=== PATIENT | male | born 1935 | race Caucasian/White ===

== ENCOUNTER → 2021-10-06 09:28 | Outpatient (CLI) | payer MEDICARE, SELFPAY ==
[2021-10-07 06:46] LABS: Covid-19 Nasal PCR Sendout Lex NOT DETECTED
== END ==
PROVIDERS: Visit Provider Nurse Practitioner
DX: Z20.822 Contact with and (suspected) exposure to COVID-19 (principal)
CPT/HCPCS: C9803; U0004; U0005

== ENCOUNTER → 2022-10-12 15:52 | Outpatient (CLI) | payer MEDICARE, SELFPAY ==
--- NOTE | 2022-10-12 15:58 | XR_ITS ---
FINAL REPORT CLINICAL HISTORY: R HIP PAIN FINDINGS: 2 views of the right hip and an AP pelvis were obtained. There is no acute fracture or dislocation. There is mild narrowing of the hip joint spaces bilaterally. There is mild osteophyte formation at the acetabular margins. There are no soft tissue abnormalities. IMPRESSION: Mild osteoarthritis bilaterally. Reviewed, Interpreted and Dictated by Isidoro Gutierrez MD Transcribed by Charlie Gonsalez Authenticated and [facility]
[2022-10-12 17:33] LABS: Basophils % 0.8 % (0.1-2.0); Eosinophils # 0.1 K/mm3 (0.0-0.4); Hematocrit 39.9 % (42.0-52.0); Hemoglobin 13.7 g/dL (14.1-18.0); Lymphocytes # 0.9 K/mm3 (0.7-4.5); Lymphocytes % 15.7 % (10-50); Mean Corpuscular HGB Conc 34.4 g/dL (31.8-35.4); Mean Corpuscular Volume 90.3 fl (80-94); Mean Platelet Volume 9.8 fl (7.4-10.4); Monocytes # 0.3 K/mm3 (0.1-1.0); Monocytes % 4.9 % (1.7-9.3); Neutrophils # 4.3 K/mm3 (1.8-7.8); Neutrophils % 77.6 % (37.0-80.0); Platelet Count 98 K/mm3 (142-424); Red Blood Count 4.41 M/mm3 (4.60-6.20); Red Cell Distribution Width 15.7 % (11.5-17.5); White Blood Count 5.6 K/mm3 (4.8-10.8)
[2022-10-12 17:59] LABS: Alanine Aminotransferase 21 U/L (12-78); Albumin Level 3.2 g/dl (3.5-5.0); Albumin/Globulin Ratio 1.2 (1.1-1.8); Alkaline Phosphatase 119 U/L (38-126); Anion Gap 10.1 mEq/L (5-15); Aspartate Amino Transferase 48 U/L (17-59); Bilirubin,Total 1.5 mg/dl (0.2-1.3); Blood Urea Nitrogen 19 mg/dl (9-20); Calcium 8.1 mg/dl (8.4-10.2); Carbon Dioxide 26 mmol/L (22.0-30.0); Chloride 99 mmol/L (98-107); Chol/HDL Ratio 3.7 (1-3.5); Cholesterol 159 mg/dl (140-200); Estimated Glomerular Filt Rate 38 ml/min (>60); GFR (African American) 46 ML/MIN (>60); Globulin 2.6 g/dL (1.3-3.2); HDL Cholesterol 43 mg/dl (40-60); Potassium 4.1 mmoL/L (3.5-5.1); Sodium 131 mmol/L (136-145); Total Protein,Serum 5.8 g/dl (6.3-8.2); Triglycerides 276 mg/dl (30-150); VLDL Cholesterol 55 mg/dL (0-40)
[2022-10-12 18:08] LABS: Erythrocyte Sedimentation Rate 13 mm/hr (0-20)
[2022-10-12 18:10] LABS: Direct LDL Cholesterol 79.38 mg/dL (100-129)
[2022-10-12 18:16] LABS: Glucose 578 mg/dl (74-100)
[2022-10-12 18:29] LABS: Thyroid Stimulating Hormone 0.82 uIU/mL (0.465-4.68)
[2022-10-12 19:05] LABS: Vitamin B12 705 pg/mL (239-931)
[2022-10-12 19:06] LABS: Folate 9.22 ng/mL
[2022-10-14 14:21] LABS: Rapid Plasma Reagin Ab Titer Non Reactive (NonRea<1:1)
== END ==
PROVIDERS: PCP Internal Medicine; Visit Provider Internal Medicine
DX: M25.551 Pain in right hip (principal); R41.3 Other amnesia; R73.9 Hyperglycemia, unspecified; I10 Essential (primary) hypertension; R25.1 Tremor, unspecified
CPT/HCPCS: 73502; 80053; 80061; 82607; 82746; 83036; 84443; 85025; 85651; 86593

== ENCOUNTER → 2022-10-19 07:19 | Outpatient (CLI) | payer MEDICARE, SELFPAY ==
--- NOTE | 2022-10-19 07:23 | CT_ITS ---
FINAL REPORT TECHNIQUE: Thin section axial images were obtained from skull base to vertex without contrast. Exam was performed using dose reduction technique. CLINICAL HISTORY: MEMORY LOSS,R/O STROKE FINDINGS: There is no mass effect or midline shift. There is no hydrocephalus. There is no intracranial hemorrhage. The posterior fossa is without acute abnormality. The basilar cisterns are preserved. There is near complete opacification of the right mastoid air cells consistent with mastoiditis. The soft tissues are otherwise without acute abnormality. No acute osseous abnormality is identified. IMPRESSION: No acute intracranial abnormality. Right mastoiditis. Reviewed, Interpreted and Dictated by Carito Olmos MD Transcribed by Deepti Costello Authenticated and [facility]
== END ==
PROVIDERS: PCP Internal Medicine; Visit Provider Internal Medicine
DX: R41.3 Other amnesia (principal)
CPT/HCPCS: 70450

== ENCOUNTER → 2022-10-20 11:38 | Outpatient (CLI) | payer MEDICARE, SELFPAY ==
[2022-10-20 15:20] LABS: Chloride 104 mmol/L (98-107); Sodium 138 mmol/L (136-145)
[2022-10-20 15:21] LABS: Potassium 3.8 mmoL/L (3.5-5.1)
[2022-10-20 15:23] LABS: Blood Urea Nitrogen 15 mg/dl (9-20); Estimated Glomerular Filt Rate 48 ml/min (>60); GFR (African American) 58 ML/MIN (>60)
[2022-10-20 15:24] LABS: Anion Gap 8.8 mEq/L (5-15); Calcium 7.9 mg/dl (8.4-10.2); Carbon Dioxide 29 mmol/L (22.0-30.0); Glucose 270 mg/dl (74-100)
== END ==
PROVIDERS: PCP Internal Medicine; Visit Provider Internal Medicine
DX: E11.65 Type 2 diabetes mellitus with hyperglycemia (principal); I10 Essential (primary) hypertension; R41.3 Other amnesia
CPT/HCPCS: 80048

== ENCOUNTER → 2022-11-17 12:50 | Outpatient (CLI) | payer MEDICARE, SELFPAY ==
[2022-11-17 17:34] LABS: Chloride 103 mmol/L (98-107); Sodium 138 mmol/L (136-145)
[2022-11-17 17:37] LABS: Blood Urea Nitrogen 19 mg/dl (9-20); Carbon Dioxide 28 mmol/L (22.0-30.0); Estimated Glomerular Filt Rate 41 ml/min (>60); GFR (African American) 50 ML/MIN (>60)
[2022-11-17 17:38] LABS: Calcium 8.6 mg/dl (8.4-10.2); Glucose 140 mg/dl (74-100)
== END ==
PROVIDERS: PCP Internal Medicine; Visit Provider Internal Medicine
DX: E11.65 Type 2 diabetes mellitus with hyperglycemia (principal); I10 Essential (primary) hypertension
CPT/HCPCS: 80048

== ENCOUNTER → 2023-05-04 11:00 | Outpatient (CLI) | payer MEDICARE, SELFPAY ==
[2023-05-05 10:56] LABS: Alanine Aminotransferase 24 U/L (12-78); Albumin Level 2.9 g/dl (3.5-5.0); Alkaline Phosphatase 158 U/L (38-126); Anion Gap 13.9 mEq/L (5-15); Aspartate Amino Transferase 54 U/L (17-59); Bilirubin,Total 1.3 mg/dl (0.2-1.3); Blood Urea Nitrogen 21 mg/dl (9-20); Calcium 8.7 mg/dl (8.4-10.2); Carbon Dioxide 26 mmol/L (22.0-30.0); Chloride 107 mmol/L (98-107); Chol/HDL Ratio 2.1 (1-3.5); Cholesterol 150 mg/dl (140-200); Estimated Glomerular Filt Rate 36 ml/min (>60); GFR (African American) 44 ML/MIN (>60); Globulin 2.8 g/dL (1.3-3.2); Glucose 133 mg/dl (74-100); HDL Cholesterol 72 mg/dl (40-60); Potassium 4.9 mmoL/L (3.5-5.1); Sodium 142 mmol/L (136-145); Total Protein,Serum 5.7 g/dl (6.3-8.2); Triglycerides 115 mg/dl (30-150); VLDL Cholesterol 23 mg/dL (0-40)
[2023-05-05 11:06] LABS: Direct LDL Cholesterol 61.25 mg/dL (100-129)
[2023-05-05 15:46] LABS: Microalbumin < 6.000 mg/L (0-16.7)
[2023-05-05 16:48] LABS: Creatinine,Urine Random 85 mg/dL (Not Estab.)
== END ==
PROVIDERS: PCP Internal Medicine; Visit Provider Internal Medicine
DX: E11.9 Type 2 diabetes mellitus without complications (principal); I10 Essential (primary) hypertension; E78.5 Hyperlipidemia, unspecified; G30.9 Alzheimer's disease, unspecified
CPT/HCPCS: 80053; 80061; 82043; 82570; 83036